=== PATIENT | male | born 2000 | race Caucasian/White ===

== ENCOUNTER 2020-09-15 16:59 | Emergency (ER) | payer SELFPAY ==
[2020-09-15] MEDS ORDERED: Ondansetron PF 4 MG/2 ML Vial ONE (17:42)
[2020-09-15] MEDS ORDERED: Morphine 4 MG/ML VIAL ONE (17:42)
== END 2020-09-15 18:50 | disposition home or self-care (01) ==
LOC: CSHERS 16:59
DX: S92.002A Unspecified fracture of left calcaneus, initial encounter for closed fracture (principal); W13.9XXA Fall from, out of or through building, not otherwise specified, initial encounter
CPT/HCPCS: 36416; J2270; J2405